=== PATIENT | female | born 2000 | race Two or more races ===

== ENCOUNTER 2019-11-17 15:33 | Outpatient (CLI) | payer OTHER | END 2019-11-17 15:48 | disposition home or self-care (01) | LOC: RAD 15:33 | DX: M54.2 Cervicalgia (principal); M25.572 Pain in left ankle and joints of left foot; M79.671 Pain in right foot ==

== ENCOUNTER 2020-01-31 10:31 | Outpatient (CLI) | payer OTHER | END 2020-01-31 10:36 | disposition home or self-care (01) | LOC: RAD 10:31 | DX: M54.2 Cervicalgia (principal); M54.5 Low back pain | CPT/HCPCS: 72141 ==

== ENCOUNTER 2020-02-15 16:18 | Outpatient (CLI) | payer OTHER | END 2020-02-15 16:22 | disposition home or self-care (01) | LOC: LAB 16:18 | DX: J11.1 Influenza due to unidentified influenza virus with other respiratory manifestations (principal); Z20.828 Contact with and (suspected) exposure to other viral communicable diseases; R50.9 Fever, unspecified; L04.0 Acute lymphadenitis of face, head and neck; R53.81 Other malaise ==

== ENCOUNTER 2020-02-16 08:53 | Outpatient (CLI) | payer OTHER | END 2020-02-16 09:01 | disposition home or self-care (01) | LOC: LAB 08:53 | PROVIDERS: ATTEND General Practice | DX: R53.81 Other malaise (principal); L04.0 Acute lymphadenitis of face, head and neck; R50.9 Fever, unspecified ==

== ENCOUNTER 2020-02-17 10:02 | Outpatient (CLI) | payer OTHER | END 2020-02-17 10:03 | disposition home or self-care (01) | LOC: SONOGRAMA 10:02 | PROVIDERS: ATTEND General Practice | DX: L04.0 Acute lymphadenitis of face, head and neck (principal); R50.9 Fever, unspecified ==

== ENCOUNTER 2020-03-08 12:42 | Outpatient (CLI) | payer OTHER | END 2020-03-08 12:46 | disposition home or self-care (01) | LOC: SONOGRAMA 12:42 | PROVIDERS: ATTEND Pathology Anatomic Pathology | DX: R59.0 Localized enlarged lymph nodes (principal) ==

== ENCOUNTER 2020-05-22 12:38 | Outpatient (CLI) | payer OTHER | END 2020-05-22 12:51 | disposition home or self-care (01) | LOC: LAB 12:38 | PROVIDERS: ATTEND Physical Medicine & Rehabilitation | DX: Z20.828 Contact with and (suspected) exposure to other viral communicable diseases (principal); Z11.59 Encounter for screening for other viral diseases ==

== ENCOUNTER 2020-09-11 10:53 | Outpatient (CLI) | payer OTHER | END 2020-09-11 10:57 | disposition home or self-care (01) | LOC: RAD 10:53 | DX: M79.642 Pain in left hand (principal); M25.532 Pain in left wrist; Z11.59 Encounter for screening for other viral diseases ==

== ENCOUNTER 2020-10-09 09:04 | Outpatient (CLI) | payer OTHER | END 2020-10-09 09:08 | disposition home or self-care (01) | LOC: SONOGRAMA 09:04 | DX: M79.642 Pain in left hand (principal) ==

== ENCOUNTER 2020-10-24 13:00 | Outpatient (CLI) | payer OTHER | END 2020-10-24 16:40 | disposition home or self-care (01) | LOC: LAB 13:00 | PROVIDERS: ATTEND Physical Medicine & Rehabilitation | DX: Z20.828 Contact with and (suspected) exposure to other viral communicable diseases (principal); Z11.59 Encounter for screening for other viral diseases ==

== ENCOUNTER 2020-12-03 13:45 | Emergency (ER) | payer OTHER ==
[~2020-12-03] VITALS: Ht 157.5 cm; Wt 45.4 kg
== END 2020-12-03 16:55 | disposition home or self-care (01) ==
LOC: ER 13:45
DX: B34.9 Viral infection, unspecified (principal); Z11.52 Encounter for screening for COVID-19

== ENCOUNTER 2021-05-13 10:46 | Outpatient (CLI) | payer OTHER | END 2021-05-13 15:00 | disposition home or self-care (01) | LOC: LAB 10:46 | DX: Z03.818 Encounter for observation for suspected exposure to other biological agents ruled out (principal) ==

== ENCOUNTER 2021-11-04 10:33 | Outpatient (CLI) | payer OTHER | END 2021-11-04 10:42 | disposition home or self-care (01) | LOC: LAB 10:33 | DX: R10.2 Pelvic and perineal pain (principal) ==

== ENCOUNTER 2021-11-28 08:44 | Outpatient (CLI) | payer OTHER | END 2021-11-28 08:47 | disposition home or self-care (01) | LOC: MRI 08:44 | PROVIDERS: ATTEND Obstetrics & Gynecology | DX: N83.209 Unspecified ovarian cyst, unspecified side (principal); R10.2 Pelvic and perineal pain | CPT/HCPCS: 72197; 74183 ==